=== PATIENT | female | born 1965 | race Caucasian/White ===

== ENCOUNTER 2023-12-12 11:28 | Emergency (ER) | payer OTHER ==
[2023-12-12 12:30] LABS: BASOPHILS ABSOLUTE AUTO 0.03 K/uL (0.00-0.10); BASOPHILS PERCENT AUTO 0.4 % (0.1-1.3); EOSINOPHILS ABSOLUTE AUTO 0.08 K/uL (0.00-0.40); EOSINOPHILS PERCENT AUTO 1.1 % (0.0-5.4); HEMATOCRIT 43.8 % (34.3-46.0); HEMOGLOBIN 15.6 g/dL (11.2-15.5); IMMATURE GRAN ABSOLUTE AUTO 0.04 K/uL (0.00-0.23); IMMATURE GRAN PERCENT AUTO 0.6 % (0.0-0.7); LYMPHOCYTES ABSOLUTE AUTO 2.26 K/uL (0.8-3.3); LYMPHOCYTES PERCENT AUTO 32.2 % (11.4-47.7); MEAN CORPUSCULAR HEMOGLOBIN 32.3 pg (31.6-35.5); MEAN CORPUSCULAR HGB CONC 35.6 g/dL (31.6-35.5); MEAN CORPUSCULAR VOLUME 90.7 fL (81.4-99.0); MONOCYTES ABSOLUTE AUTO 0.69 K/uL (0.20-0.90); MONOCYTES PERCENT AUTO 9.8 % (3.3-12.6); NEUTROPHILS ABSOLUTE AUTO 3.91 K/uL (1.0-7.6); NEUTROPHILS PERCENT AUTO 55.9 % (40.0-78.1); PLATELET COUNT,PLT 235 K/uL (130-375); RED BLOOD CELL COUNT 4.83 M/uL (3.77-5.24)
[2023-12-12 12:45] LABS: CALCIUM 8.9 mg/dL (8.5-10.1); CREATININE 0.8 mg/dL (0.6-1.0); EST CRCL DRUG DOSING (CG) 72.63 mL/min; POTASSIUM,K 3.5 mmol/L (3.6-5.2)
[2023-12-12 12:47] LABS: ANION GAP 12.5 mmol/L (5.0-14.0); PROTHROMBIN TIME 9.9 sec (9.2-10.6)
== END 2023-12-12 14:00 | disposition home or self-care (01) ==
LOC: JP.ED 11:28
DX: G89.18 Other acute postprocedural pain (principal); M25.562 Pain in left knee; Z79.899 Other long term (current) drug therapy; Z86.16 Personal history of COVID-19; Z90.710 Acquired absence of both cervix and uterus; Z79.01 Long term (current) use of anticoagulants
CPT/HCPCS: 36415; 73562-26-LT; 73562-LT; 80048; 83605; 84145; 85025; 85379; 85610; 99283